=== PATIENT | female | born 1995 | race African-American/Black ===

== ENCOUNTER 2017-02-18 18:53 | Emergency (ER) | payer SELFPAY ==
[~2017-02-18] VITALS: Ht 157.5 cm; Wt 64.0 kg
[2017-02-18 18:57] VITALS: BP 101/67
== END 2017-02-19 05:53 | disposition left against medical advice (07) ==
LOC: ER 02-19 05:44
DX: M25.512 Pain in left shoulder (principal); Z53.21 Procedure and treatment not carried out due to patient leaving prior to being seen by health care provider

== ENCOUNTER 2017-04-17 11:40 | Emergency (ER) | payer OTHER ==
[~2017-04-17] VITALS: Ht 157.5 cm; Wt 60.7 kg
[2017-04-17] MEDS ORDERED: IBUP-1510 PO (11:50)
[2017-04-17 12:59] LABS: CLARITY URINE CLEAR (CLEAR); COLOR URINE YELLOW (YELLOW); GLUCOSE URINE NEGATIVE (NEGATIVE); KETONES URINE NEGATIVE (NEGATIVE); LEUKOCYTE ESTERASE URINE NEGATIVE (NEGATIVE); NITRITE URINE NEGATIVE (NEGATIVE); OCCULT BLOOD URINE NEGATIVE (NEGATIVE); PH URINE 6.5 (4.5-8.0); PROTEIN URINE NEGATIVE (NEGATIVE); SPECIFIC GRAVITY URINE 1.022 (1.005-1.030)
[2017-04-17] MEDS ORDERED: LORAZEPAM 0.5MG TABLET PO ONE (13:00)
[2017-04-17 13:38] LABS: *AMPHETAMINES SCREEN URINE NEGATIVE (NEGATIVE); *BARBITURATES SCREEN URINE NEGATIVE (NEGATIVE); *BENZODIAZEPINES SCREEN URINE NEGATIVE (NEGATIVE); *COCAINE SCREEN URINE NEGATIVE (NEGATIVE); METHADONE URINE SCREEN NEGATIVE (NEGATIVE); OPIATES URINE SCREEN NEGATIVE (NEGATIVE); PHENCYCLIDINE URINE SCREEN NEGATIVE (NEGATIVE)
[2017-04-17 13:39] LABS: CANNABINOID URINE SCREEN PRESUMTIVE POSITIVE (NEGATIVE)
[2017-04-17 14:04] VITALS: BP 118/60
== END 2017-04-17 14:07 | disposition home or self-care (01) ==
LOC: ER 12:41
DX: M79.1 Myalgia (principal); R51 Headache; F41.9 Anxiety disorder, unspecified; F32.9 Major depressive disorder, single episode, unspecified; Z88.0 Allergy status to penicillin
CPT/HCPCS: 80305; 81003; 81025; 93005; 99285; Z7610

== ENCOUNTER 2017-06-08 14:26 | Emergency (ER) | payer OTHER ==
[~2017-06-08] VITALS: Ht 157.5 cm; Wt 63.0 kg
[~2017-06-08 14:26] MED LIST: IBUP-2030 PO
[2017-06-08 14:41] VITALS: BP 109/66
== END 2017-06-08 19:00 | disposition left against medical advice (07) ==
LOC: ER 14:48
DX: M25.562 Pain in left knee (principal); Z53.21 Procedure and treatment not carried out due to patient leaving prior to being seen by health care provider